=== PATIENT | female | born 1995 | race African-American/Black ===

== ENCOUNTER 2023-05-10 10:30 | Emergency (ER) | payer SELFPAY | END 2023-05-10 11:22 | disposition home or self-care (01) | LOC: CSHERS 10:30 | DX: M77.8 Other enthesopathies, not elsewhere classified (principal) ==

== ENCOUNTER 2024-02-08 08:38 | Emergency (ER) | payer BC, OTHER ==
[2024-02-08] MEDS ORDERED: predniSONE 20 MG TAB ONE (09:06)
[2024-02-08] MEDS ORDERED: Albuterol 2.5 MG (0.5 mL) NEB ONE (09:11)
[2024-02-08] MEDS ORDERED: Ipratropium/Albuterol 3 ML NEB ONE (09:11)
[2024-02-08 10:24] LABS: SARS-CoV-2 E Target Negative; SARS-CoV-2 N2 Target Negative; SARS-CoV-2 NAA Rapid Test Not Detected (NotDetected); SARS-CoV-2 RdRP gene Negative
== END 2024-02-08 10:37 | disposition home or self-care (01) ==
LOC: CSHERS 08:38
DX: J45.901 Unspecified asthma with (acute) exacerbation (principal)
CPT/HCPCS: J7512; J7611; J7620; U0002

== ENCOUNTER 2024-06-09 19:00 | Inpatient (IN) | payer BC, OTHER ==
[~2024-06-09 19:00] MED LIST: Penicillin G 2.5 MILL.units 2.5 MILL.UNITS in Premix 1 BAG IVPB SCH
[2024-06-09] MEDS ORDERED: Ibuprofen 800 MG TAB PO PRN (21:48)
[2024-06-09] MEDS ORDERED: Misoprostol 200 MCG TAB PR PRN (21:48)
[2024-06-09] MEDS ORDERED: Diphenoxylate HCl/Atropine Tablet PO PRN (21:48)
[2024-06-09] MEDS ORDERED: Ondansetron PF 4 MG/2 ML Vial IVP PRN (21:48)
[2024-06-09] MEDS ORDERED: hydrALAZINE 20 MG/ML VIAL SLOW IVP PRN (21:48)
[2024-06-09] MEDS ORDERED: Tranexamic Acid 1,000 MG/10 ML VIAL IVP PRN (21:48)
[2024-06-09] MEDS ORDERED: Methylergonovine 0.2 MG/ML VIAL IM PRN (21:48)
[2024-06-09] MEDS ORDERED: HYDROcodone/Acetaminophen 5/325 mg Tablet PO PRN (21:48)
[2024-06-09] MEDS ORDERED: Carboprost 250 MCG/ML AMP IM PRN (21:48)
[2024-06-09] MEDS ORDERED: Acetaminophen 500 MG TAB PO PRN (21:48)
[2024-06-09] MEDS ORDERED: Promethazine HCl 25 MG/ML VIAL IM PRN (21:48)
[2024-06-09] MEDS ORDERED: fentaNYL 50 mcg/mL 1 mL Vial SLOW IVP PRN (21:48)
[2024-06-09] MEDS ORDERED: Lidocaine 1% (PF) 30 ML VIAL SC PRN (21:48)
[2024-06-09 21:54] VITALS: BMI 47.0
[2024-06-09] MEDS ORDERED: Oxytocin 30 units/NS 500 ML 500 ML IV SCH ×3 (22:45→23:00)
[2024-06-09] MEDS ORDERED: Penicillin G Potassium 5 MILL.UNITS in Sodium Chloride 0.9% 100 ML IVPB SCH (23:00)
[2024-06-09] MEDS ORDERED: Lactated Ringer's 1,000 ML IV SCH (23:00)
[2024-06-10 00:26] LABS: Syphilis Antibody Nonreactive (Nonreactive); Syphilis Antibody Index 0.11 S/CO (<1.00 Non-Reactive)
[2024-06-10 00:28] LABS: HBsAg Index 0.25 S/CO (0-0.99); Hep B Surf Ag - L&D Non-Reactive S/CO (NonReactive)
[2024-06-10 00:42] LABS: Hematocrit 36.1 % (34.9-44.5); Hemoglobin 11.7 g/dL (12.0-15.5); Mean Corpuscular HGB CONC 32.4 g/dL (32.0-36.0); Mean Corpuscular Hemoglobin 27.7 pg (27.0-33.0); Mean Corpuscular Volume 85.5 fL (81.6-98.3); Platelet Count 189 10x3/uL (150-450); RBC Distribution Width 14.8 % (11.5-14.5); Red Blood Cell (RBC) Count 4.22 10x6/uL (3.90-5.03); White Blood Cell (WBC) Count 8.6 10x3/uL (3.5-10.5)
[2024-06-10 02:33] LABS: ALT (SGPT) 16 U/L (8-55); AST (SGOT) 18 U/L (5-34); Alkaline Phosphatase 155 U/L (40-110); Anion Gap 17 mmol/L (10-20); BUN (Urea Nitrogen) 12 mg/dL (7.0-18.7); Bilirubin, Total 0.2 mg/dL (0.2-1.2); Calc. Creatinine Clearance 193 mL/min (70-130); Calcium 9.3 mg/dL (7.8-10.44); Carbon Dioxide 16 mmol/L (22-29); Chloride 109 mmol/L (98-107); Estimated GFR 108; Globulin 3.5 g/dL (2.4-3.5); Glucose 115 mg/dL (70-105); Potassium 4.2 mmol/L (3.5-5.1); Protein, Total 6.5 g/dL (6.0-8.3); Sodium 138 mmol/L (136-145)
[2024-06-10] MEDS: Misoprostol 100 MCG TAB VAG SCH (08:08)
[2024-06-10] MEDS: Labetalol HCl 100 MG TAB PO SCH ×2 (08:57→22:23)
[2024-06-10 17:27] LABS: Analyzer IN Cardio CS NICU; Critical Notified By: S. CREAMER, RRT; RapidComm Collect By CBN
[2024-06-10 17:28] LABS: Analyzer IN Cardio CS NICU; pH (Cord, venous) 7.266 (7.250-7.350)
[2024-06-10 17:29] LABS: RapidComm Collect By CBN
[2024-06-10] MEDS ORDERED: Meperidine HCl/PF 25 MG (1 mL) VIAL SLOW IVP PRN (19:11)
[2024-06-10] MEDS ORDERED: Naloxone HCl 0.4 mg/ml Vial IVP PRN ×2 (19:11)
[2024-06-10] MEDS ORDERED: Moisturizing Cream (Eucerin) 113 GM JAR TOP PRN (19:11)
[2024-06-10] MEDS ORDERED: Ketorolac Tromethamine 30 MG (1 mL) VIAL IVP PRN (19:11)
[2024-06-10] MEDS ORDERED: Morphine 4 MG/ML VIAL SLOW IVP PRN (19:11)
[2024-06-10] MEDS ORDERED: Promethazine HCl 25 MG/ML VIAL IM PRN ×2 (19:11→20:09)
[2024-06-10] MEDS ORDERED: Naloxone HCl 0.4 mg/ml Vial IV PRN (19:11)
[2024-06-10] MEDS ORDERED: Ondansetron PF 4 MG/2 ML Vial IVP PRN ×3 (19:11→20:09)
[2024-06-10] MEDS ORDERED: Communication Order-Pharmacy FS SCH (19:15)
[2024-06-10] MEDS: Ketorolac Tromethamine 30 MG (1 mL) VIAL IVP SCH (19:34)
[2024-06-10] MEDS: diphenhydrAMINE 50 MG/ML VIAL IVP PRN (19:50)
[2024-06-10] MEDS: fentaNYL 50 mcg/mL 1 mL Vial SLOW IVP PRN (19:50)
[2024-06-10] MEDS ORDERED: Bisacodyl 10 MG SUPP PR PRN (20:09)
[2024-06-10] MEDS ORDERED: Lanolin Ointment 7 GM TUBE TOP PRN (20:09)
[2024-06-10] MEDS ORDERED: Milk Of Magnesia 30 ML UDCUP PO PRN (20:09)
[2024-06-10] MEDS ORDERED: hydrALAZINE 20 MG/ML VIAL SLOW IVP PRN (20:09)
[2024-06-10] MEDS: Misoprostol 100 MCG TAB ONE (21:14)
[2024-06-10] MEDS: Morphine PF 10 MG/10 ML VIAL ONE (21:14)
[2024-06-10] MEDS: Ondansetron PF 4 MG/2 ML Vial ONE (21:15)
[2024-06-10] MEDS: CEFAZOLIN 2 GM VIAL ONE (21:15)
[2024-06-10] MEDS: PHENYLEPHRINE-NS 100 MCG/ML 10 ML SYRINGE ONE (21:15)
[2024-06-10] MEDS: Oxytocin 10 UNITS/ML VIAL ONE (21:15)
[2024-06-10] MEDS: Dexamethasone 10 MG/ML VIAL ONE (21:15)
[2024-06-10] MEDS: Docusate 100 MG CAP PO SCH (22:23)
[2024-06-11] MEDS: Ketorolac Tromethamine 30 MG (1 mL) VIAL IVP SCH (02:12)
[2024-06-11] MEDS: Ferrous Sulfate 325 MG TAB PO SCH (07:05)
[2024-06-11] MEDS: Prenatal Vitamin 1 TAB PO SCH (08:52)
[2024-06-11] MEDS: HYDROcodone/Acetaminophen 5/325 mg Tablet PO PRN (10:29)
[2024-06-11] MEDS: diphenhydrAMINE 25 MG CAP PO PRN (17:59)
[2024-06-12] MEDS: Ibuprofen 800 MG TAB PO SCH (00:52)
[2024-06-13] MEDS: HYDROcodone/Acetaminophen 5/325 mg Tablet PO PRN (05:29)
[2024-06-13 16:05] VITALS: BP 142/87; TEMP 98.7
== END 2024-06-13 17:10 | disposition home or self-care (01) | DRG 788 ==
LOC: CSHLD 20:26 → CSHPP 06-10 20:20
PROVIDERS: ADMIT Family Medicine; ATTEND Family Medicine
PROC: 4A033R1 Measurement of Arterial Saturation, Peripheral, Percutaneous Approach (ICD-10-PCS; 2024-06-09)
PROC: 10D00Z1 Extraction of Products of Conception, Low, Open Approach (ICD-10-PCS; principal; 2024-06-10)
DX: O48.0 Post-term pregnancy (principal); Z3A.40 40 weeks gestation of pregnancy; Z37.0 Single live birth; O76 Abnormality in fetal heart rate and rhythm complicating labor and delivery
CPT/HCPCS: 36415; 51702; 80053; 82805; 85027; 86780; 86850; 86900; 86901; 87340; 88307; J1100; J1200; J1885; J2274; J2405; J2590; J3010